=== PATIENT | female | born 1985 | race Caucasian/White ===

== ENCOUNTER 2024-09-06 08:24 | Emergency (ER) | payer MEDICAID ==
[~2024-09-06] VITALS: Ht 157.5 cm; Wt 71.2 kg
[2024-09-06 08:27] VITALS: BP 141/87; PULSE 71; RESP 18; TEMP 98; O2SAT 98
[2024-09-06] MEDS ORDERED: HYDR-5071 PO (09:35)
[2024-09-06] MEDS ORDERED: IBUP-2213 PO (09:35)
[2024-09-06] MEDS: KETOROLAC 60 MG/2 ML VIAL IM ONE (09:55)
== END 2024-09-06 10:30 | disposition home or self-care (01) ==
LOC: MED 08:24
DX: R07.89 Other chest pain (principal); R03.0 Elevated blood-pressure reading, without diagnosis of hypertension; J45.909 Unspecified asthma, uncomplicated; F17.210 Nicotine dependence, cigarettes, uncomplicated; Z86.69 Personal history of other diseases of the nervous system and sense organs; Z90.49 Acquired absence of other specified parts of digestive tract; Z98.890 Other specified postprocedural states
CPT/HCPCS: 93005; 96372; 99283; J1885